=== PATIENT | female | born 1995 | race Hispanic/Latino ===

== ENCOUNTER 2017-12-10 21:18 | Emergency (ER) | payer OTHER ==
[~2017-12-10] VITALS: Ht 154.9 cm; Wt 77.1 kg
--- NOTE | 2017-12-11 00:07 | ED HEADACHE COMPLAINT ---
History of Present Illness General Chief Complaint: Skin Rash/ Abcess Stated Complaint: BEHIND L EAR ABCESS, MULTIPLE COMPLIANTS Source: patient, old records Exam Limitations: no limitations Vital Signs & Intake/Output Vital Signs & Intake/Output Vital Signs Date Time Temp Pulse Resp B/P B/P Pulse O2 O2 Flow FiO2 Mean Ox Delivery Rate 12/11 0116 97.8 81 18 123/71 97 Room Air 12/11 0115 97 Room Air 12/10 2210 98.7 98 18 122/85 100 Room Air ED Intake and Output 12/11 0000 12/10 1200 Intake Total Output Total Balance Patient 170 lb Weight Weight Reported by Patient Measurement Method Allergies Coded Allergies: No Known Allergies (12/10/17) Reconcile Medications Butalb/Acetaminophen/Caffeine (Qfztcj-Talhabij-Xqbp 50-325-40) 50 MG-325 MG-40 MG TABLET 1 TAB PO DAILY PRN PAIN Metoclopramide HCl (Reglan) 10 MG TABLET 1 TAB PO TID PRN nausea 30 minutes before meals and bedtime Triage Note: PT FROM HOME C/O MIGRAINE AND LEFT FLANK PAIN FOR THE PAST 4X DAYS. PT STATES NO HX OF KIDNEY STONES, DENIES BURNING UPON URINATION OR FREQUENCY. PT UNABLE TO TOLERATE FOOD OR LIQUIDS DUE TO MIRGRAINE, UNABLE TO SLEEP. PT ACTING AGE APPRORPRIATELY, NO PHOTOSENSITIVITY NOTED. PT STATES BLURRY VISION INTERMITTENTLY FROM MIGRAINES. PT HAS LUMP NOTED BEHIND LEFT EAR ON NECK AREA, TENDER TO TOUCH. Triage Nurses Notes Reviewed? yes Onset: Gradual Duration: week(s):, intermittent, waxing and waning Timing: recent history Quality/Severity: moderate, achy Severity Numbers: 8 Head Injury Location: global No Modifying Factors: none Associated Symptoms: back pain nausea : No Patient currently breastfeeds: No HPI: 22-year-old female history of kidney stones migraine presents with multiple complaints. She is a history of a migraine headache that is worse than normal the past 4 days associated with intermittent waxing and waning left and right flank pain. She has a history of kidney stones however states she does not have urinary urgency frequency hematuria. She reports her headaches have been making her nauseous reports photosensitivity. No neck stiffness fever or chills. She states that yesterday she noticed a bump behind her left ear. She denies noting any discharge from it. She was prescribed amitriptyline for her migraines however states it is not helping. She has not taken anything else for her symptoms. (Jere Lucero) Past History Travel History Traveled to [place] past 21 day No Medical History Any Pertinent Medical History? see below for history Neurological: migraine Surgical History Surgical History: non-contributory Psychosocial History What is your primary language Barbadian Tobacco Use: Never used Family History Hx Contributory? No (Jere Lucero) Review of Systems Review of Systems Constitutional: Reports: see HPI. Comments Review of systems: See HPI, All other systems negative. Constitutional, no chills no fever, no malaise HEENT: no sore throat no congestion Cardiovascular: No chest pain Skin: no rashes, no change in skin Respiratory: No dyspnea no cough no sputum no hemoptysis GI: nausea no vomiting, no diarrhea, no bloating/constipation : No dysuria No hematuria, no frequency Muscle skeletal: No joint pain, back pain, no neck pain, Neurologic: headache Heme/endocrine: No bruising Immunology: No lymphadenopathy (Jere Lucero) Physical Exam Physical Exam General Appearance: well developed/nourished, no apparent distress, alert, awake Cranial Nerves: normal hearing, normal speech, PERRL Comments: Well-developed well-nourished patient in no apparent distress. HEENT: Atraumatic, there is no abscess there is no overlying erythema or rash noted to the left posterior scalp no mastoid tenderness, extraocular motion intact pupils equal round and reactive to light Neck: Supple, FROM Back: FROM no CVA tenderness no midline tenderness Cardiovascular: Regular rate and rhythms no murmurs rub Respiratory: Chest nontender.There were no bony deformities, no asymmetry. No respiratory distress. Patient speaking in full complete sentences. Breath sounds clear to auscultation bilaterally: NO W/R/R Extremities: full range of motion Neuro: awake, alert, and oriented to person, place and time. There were no obvious focal neurologic abnormalities. Skin: Warm & dry;No appreciable rash on exposed skin Psych: Mood affect normal, normal memory normal judgment. Core Measures Sepsis Present: No Sepsis Focused Exam Completed? No (Jere Lucero) Progress Differential Diagnosis: IC mass/tumor, migraine DRAKE, musculoskeletal pain, tension DRAKE, abscess, uti, kidney stones, muscle strain Plan of Care: Orders Procedure Date/time Status Saline Lock 03/20 0014 Active CBC WITHOUT DIFFERENTIAL 12/11 13 Complete BASIC METABOLIC PANEL 12/11 13 Complete URINE 12/11 6 Complete URINALYSIS 12/11 6 Complete Laboratory Tests 12/11/17 0025: Anion Gap 13, Estimated GFR > 60, BUN/Creatinine Ratio 25.0, Glucose 88, Calcium 9.7, CBC w Diff NO MAN DIFF REQ, RBC 4.75, MCV 78.6 L, MCH 25.3 L, MCHC 32.2 L, RDW 16.4 H, MPV 8.4, Gran % 69.6, Lymphocytes % 24.1, Monocytes % 4.9, Eosinophils % 0.9, Basophils % 0.5, Absolute Granulocytes 8.4 H, Absolute Lymphocytes 2.9, Absolute Monocytes 0.6, Absolute Eosinophils 0.1, Absolute Basophils 0.1 12/11/17 002: Urinalysis HEAVY H, Urine Color YEL, Urine Clarity HAZY H, Urine pH 7.5, Ur Specific [place] 1.020, Urine Protein TRACE H, Urine Ketones NEG, Urine Nitrite NEG, Urine Bilirubin NEG, Urine Urobilinogen 0.2, Ur Leukocyte Esterase NEG, Ur Microscopic SEDIMENT EXAMINED, Urine RBC RARE, Urine WBC RARE, Ur Epithelial Cells RARE, Urine Mucus PACKD H, Urine Hemoglobin NEG, Urine Glucose NEG, Urine Test NEGATIVE Labs ordered old records reviewed patient medicated with Toradol 30 IV Reglan 10 IV IV fluids 110-patient reports a feeling improved with medication she states the headache has resolved. Discussed with her plan of care I discussed with her at length all of her labs she'll follow-up with her primary care physician and return precautions were discussed at length cleared for discharge (Char BOONE,Jere) Departure Departure Time of Disposition: 107 Disposition: HOME OR SELF CARE Condition: Stable Clinical Impression Primary Impression: Migraine Referrals: Unknown (PCP/Family) Additional Instructions: Follow-up with your primary care physician this week. Fioricet for your headache- this has tylenol in it. Reglan for nausea. Return anytime sooner with any concerns. Departure Forms: Customer Survey General Discharge Information Prescriptions: Current Visit Scripts Metoclopramide HCl (Reglan) 1 TAB PO TID PRN nausea #10 TAB 30 minutes before meals and bedtime Butalb/Acetaminophen/Caffeine (Besxxj-Svgkdkzb-Lfex 50-325-40) 1 TAB PO DAILY PRN PAIN #12 TAB (Jere Lucero) PA/HISTOLOGY MANAGER Co-Sign Statement Statement: ED Attending supervision documentation- [] I saw and evaluated the patient. I have also reviewed all the pertinent lab results and diagnostic results. I agree with the findings and the plan of care as documented in the PA's/HISTOLOGY MANAGER's documentation. [X] I have reviewed the ED Record and agree with the PA's/HISTOLOGY MANAGER's documentation. [] Additions or exceptions (if any) to the PAs/HISTOLOGY MANAGER's note and plan are summarized below: [] (Froylan FRIEDMAN,Eugene Pleitez)
[2017-12-11 00:35] LABS: ABSOLUTE BASOPHIL COUNT 0.1 /CUMM (0.0-0.2); ABSOLUTE EOSINOPHIL COUNT 0.1 /CUMM (0.0-0.7); ABSOLUTE GRANULOCYTE CT 8.4 /CUMM (1.4-6.5); ABSOLUTE LYMPH COUNT 2.9 /CUMM (1.2-3.4); ABSOLUTE MONOCYTE COUNT 0.6 /CUMM (0.10-0.60); BASOPHIL % 0.5 % (0.0-2.0); EOSINOPHIL % 0.9 % (0-5); GRANULOCYTE % 69.6 % (42.2-75.2); HEMATOCRIT 37.3 % (37-47); MEAN CORPUSCULAR HGB 25.3 PG (27.0-31.0); MEAN CORPUSCULAR HGB CONC 32.2 G/DL (33.0-37.0); MEAN CORPUSCULAR VOLUME 78.6 FL (81.0-99.0); MEAN PLATELET VOLUME 8.4 FL (7.4-10.4); PLATELET COUNT 456 /CUMM (130-400); RBC DISTRIBUTION WIDTH 16.4 % (11.5-14.5); RED BLOOD CELL CT 4.75 /CUMM (4.20-5.40); WHITE BLOOD CELL COUNT 12.1 /CUMM (4.8-10.8)
[2017-12-11] MEDS ORDERED: BUTALB-ACETAMI1 EACH PO (01:10)
[2017-12-11] MEDS ORDERED: REGLAN10 M1 PO (01:10)
[2017-12-11 01:16] VITALS: BP 123/71
== END 2017-12-11 01:17 ==
LOC: ERH 21:18
PROVIDERS: Physician Assistant Medical
DX: G43.909 Migraine, unspecified, not intractable, without status migrainosus (principal)
CPT/HCPCS: 81001; 81025; 96374; 96375; J1200; J1885; J2765